=== PATIENT | female | born 1995 | race American Indian/Alaskan Native ===

== ENCOUNTER 2016-10-28 10:10 | Outpatient (CLI) | payer OTHER ==
[2016-10-28 11:02] LABS: Bilirubin,Urine NEG (Negative); Blood,Urine NEG (Negative); Ketones,Urine TR mg/dL (Negative); Leukocyte Esterase,Urine NEG (Negative); Mucus,Urine FEW /HPF; Nitrite,Urine NEG (Negative); Protein,Urine <15 mg/dL mg/dL (Negative); Urobilinogen,Urine < 2.0 mg/dL (<2.0)
[2016-10-28 11:17] VITALS: BP 114/63
[2016-10-28] MEDS ORDERED: LACTATED RINGERS 500 ML IV ONE (12:26)
== END 2016-10-28 13:19 | disposition home or self-care (01) ==
LOC: TRG 10:10
PROVIDERS: ATTEND Obstetrics & Gynecology
DX: Z34.90 Encounter for supervision of normal pregnancy, unspecified, unspecified trimester (principal); Z3A.00 Weeks of gestation of pregnancy not specified
CPT/HCPCS: 59025; 81001; 96360; 96361; J7120

== ENCOUNTER 2019-05-29 14:10 | Inpatient (IN) | payer MEDICAID ==
[2019-05-29] MEDS ORDERED: LACTATED RINGERS 500 ML IV ONE (14:25)
[2019-05-29] MEDS: BRETHINE SUB-Q SCH ×2 (14:35→15:00)
[2019-05-29] MEDS ORDERED: BRETHINE ONE (15:00)
[2019-05-29] MEDS: CELESTONE SOLUSPAN IM SCH (16:16)
[2019-05-29 16:39] LABS: Amorphous Crystals,Urine Few; Bilirubin,Urine NEG (Negative); Blood,Urine NEG (Negative); Color,Urine Yellow (Yellow); Mucus,Urine FEW /HPF; Protein,Urine <15 mg/dL mg/dL (Negative); Urobilinogen,Urine < 2.0 mg/dL (<2.0)
[2019-05-29] MEDS ORDERED: MAGNESIUM SULFATE 4GM/100ML 4 GM/100 ML BAG IV ONE (17:00)
[2019-05-29] MEDS ORDERED: LACTATED RINGERS 1,000 ML ONE (17:28)
[2019-05-29] MEDS ORDERED: COLACE PO PRN (17:39)
[2019-05-29] MEDS ORDERED: TYLENOL PO PRN (17:39)
[2019-05-29 17:43] LABS: Hematocrit 38.3 % (30.3-42.9); Hemoglobin 12.7 gm/dl (10.1-14.3); Mean Corpuscular HGB Conc 33 % (30-34); Mean Corpuscular Volume 82 fl (79-97); Platelet Count 190 K/mm3 (140-440); Red Blood Count 4.68 M/mm3 (3.65-5.03); Red Cell Distribution Width 17.5 % (13.2-15.2)
[2019-05-29] MEDS ORDERED: LACTATED RINGERS 1,000 ML IV SCH (18:00)
[2019-05-29] MEDS: MAGNESIUM SULFATE 40GM/1000ML 40 GM/1,000 ML BAG IV SCH (18:15)
--- NOTE | 2019-05-29 18:39 | Ultrasound Report ---
[facility] COMPLETE OBSTETRIC ULTRASOUND HISTORY: ptl COMPARISON: None. TECHNIQUE: Routine complete OB ultrasound performed. FINDINGS: Ovaries And Uterus: No significant abnormality. Gestation: Cosme Monochorionic monoamniotic intrauterine fetus. Placenta: Posterior location and free of the internal cervical os. Presentation: Cephalic Amniotic Fluid Index: 5.1 cm heart rate 143 BIOMETRY: Biparietal diameter: 6.02 cm corresponding to24 weeks 4 days Head circumference: 28.7 cmcorresponding to31 weeks 4 days Abdominal circumference: 25.7 cmcorresponding to29 weeks 6 days Femur length: 6.7 cmcorresponding to34 weeks 3 days Estimated weight: 1687 grams, which is at the 10th percentile. Estimated gestational age based on clinical history/previous ultrasound: 32 weeks 2 days with SHERI 08/2019 Estimated gestational age based on today's measurements: 30 weeks 1 day SHERI 08/06/2019 IMPRESSION 1. Single intrauterine 2. Decreased amniotic fluid 3. Small BPD 4 heart motion noted Comments because of the discrepancy in the BPD size as compared to the remaining measurement paramete rs recommend maternal medicine consultation Signer Name: Dhiraj Raman MD Signed: 05/29/2019 6:35 PM Workstation Name: [email or web address]
[2019-05-29] MEDS ORDERED: ZOFRAN IV PRN (19:16)
[2019-05-29] MEDS ORDERED: SUDAFED PO PRN (19:16)
[2019-05-29] MEDS ORDERED: MILK OF MAGNESIA PO PRN (19:16)
[2019-05-29] MEDS ORDERED: DEEP SEA NS PRN (19:16)
[2019-05-29] MEDS ORDERED: SODIUM CHLORIDE FLUSH SYRINGE 10 ML IV PRN (19:16)
[2019-05-29] MEDS ORDERED: BENADRYL PO PRN (19:16)
--- NOTE | 2019-05-29 19:31 | Consultation ---
Consult Note - Parent Education I met with parent(s) and discussed the following:: Need for NICU admission, Poss ible need for intubation and surfactant or other resp support, Temperature regulation, Head ultrasounds to evaluate IVH, Eye exams for ROP screening, Possible need for IV fluids/TPN and IV antibiotics, Possible need for umbilical lines, Importance of providing breast milk & encouraged pumping aft delivery, Donor breast milk if baby meets criteria after , Slow feeding advancement and monitoring of tolerance. NG/OG feeds, Need to monitor for jaundice, Data for survival & survival without significant co-morbidities Parent(s) demonstrated understanding of all the information:: Yes Assessment and Plan - Assessment Gestation:: 32 (32 2/7 wker) Estimated Weight: 1687 gms Baby's gender: Female Baby's name: Kiersten Pham Additional Comment: 23 YO mother with previous CS. 32 2/7 weeker. Recei farhat beta x1 and terbutaline. Mother is interested in and supplementing with formula as needed. - Plan Plan: Agree with Mag & steroids Will attend delivery Please call NICU with questions
--- NOTE | 2019-05-29 21:13 | History and Physical Report ---
History of Present Illness Date of examination: 05/30/19 Date of admission: 05/29/19 16:48 Chief complaint: contractions History of present illness: Menstrual History Regularity: regular Menses every: 28 days Duration: 4 LMP: 10/16/2018 LMP reliability: definite LMP character: chief concierge test type: urine test Date: 11/24/2018 BC at conception: none Planned ? no EDC Calculations LMP: 07/23/2019 EDC Confirmation: 07/23/2019 Gestational Age: 5 4/7 weeks Past History : 4 Term Births: 2 Living Children: 2 Para: 2 Elect. Ab: 1 # 1 Delivery date: 2012 Weeks Gestation: 40.6 Delivery type: Anesthesia type: epidural Delivery location: [facility] Infant Sex: Female weight: 7-7 Comments: distress; # 2 Delivery date: 2017 Weeks Gestation: 37 Delivery type: Anesthesia type: epidural Delivery location: [facility] Sex: Male weight: 5-8 Past Medical History: Negative Past Medical History Past Surgical History: Past Medical History Surgery (Non-rivet hole puncher): Abnormal PAP: negative DAT Exposure: negative Infertility: negative Uterine Anomaly: negative Uterine Surgery (not C/S): negative Other Gynecologic Problems: negative Medical History Comments: Negative Family Hx: Negative Social Hx: no +tobacco ; no drugs ; no etoh [facility] Infection History Hx of STD: none Partner hx. of genital herpes: no Rash, Viral, or Febrile illness since last LMP? no Varicella/Chicken Pox Status: Immunized Genetic History Congenital Heart Defect: Mom: no Dad: no Mathew Disease: Mom: no Dad: no Thalassemia Mom: no Dad: no Neural Tube Defect Mom: no Dad: no Down's Syndrome Mom: no Dad: no Eros-Sachs Mom: no Dad: no Sickle Cell Disease/Trait Mom: no Dad: no Hemophilia Mom: no Dad: no Muscular Dystrophy Mom: no Dad: no Cystic Fibrosis Mom: no Dad: no Wilbraham Chorea Mom: no Dad: no Mental Retardation Mom: no Dad: no Fragile X Mom: no Dad: no Other Genetic/Chromosomal Disorder Mom: no Dad: no Child w/other defect Mom: no Dad: no Enviromental Exposures Xray Exposure: no Medication, drug, or alcohol use since LMP: no Chemical/Other Exposure: no Exposure to Cat Liter: no Hx of Parvovirus (Fifth Disease): no Occupational Exposure to Children: none Active Medications (reviewed today): PNV GUMMIES () Current Allergies (reviewed today): No known allergies Past History Past Medical History: other (see HPI) Past Surgical History: other (see HPI) CLAIMS MANAGER History: other (see HPI) Family/Genetic History: other (see HPI) - Obstetrical History Expected Date of Delivery: 07/23/19 Actual Gestation: 32 Week(s) 2 Day(s) : 4 Para: 2 Hx # Term Pregnancies: 2 Number of Pregnancies: 0 Spontaneous Abortions: 0 Induced : 1 Number of Living Children: 2 Medications and Allergies Allergies Allergy/AdvReac Type Severity Reaction Status Date / Time No Known Allergies Allergy Verified 05/29/19 14:43 Home Medications Medication Instructions Recorded Confirmed Last Taken Type Cyclobenzaprine HCl [Flexeril 5 MG 5 mg PO TID PRN #21 tab 04/09/16 Unknown Rx TAB] Ibuprofen [Motrin 800 MG tab] 800 mg PO Q8HR PRN #30 tablet 04/09/16 Unknown Rx Ferrous Sulfate [Feosol 325 MG tab] 325 mg PO BID #60 tablet 01/05/17 Unknown Rx HYDROcodone/APAP 5-325 [[place] 1 each PO Q6HR PRN #30 tablet 01/05/17 Unknown Rx 5/325] Ibuprofen [Motrin] 800 mg PO Q8HR PRN #30 tablet 01/05/17 Unknown Rx Vit Calc,Iron,Folic 1 each PO DAILY #30 tablet 01/05/17 Unknown Rx [ Vitamins] Active Meds: Active Medications Acetaminophen (Tylenol) 650 mg PO Q4H PRN PRN Reason: Pain MILD(1-3)/Fever >100.5/DUNCAN Betamethasone Acet/Betameth SodPhos (Celestone Soluspan) 12 mg IM Q24H DEYSI Stop: 05/30/19 17:01 Last Admin: 05/29/19 16:16 Dose: 12 mg Documented by: Diphenhydramine HCl (Benadryl) 25 mg PO Q6H PRN PRN Reason: Itching Docusate Sodium (Colace) 100 mg PO Q12H PRN PRN Reason: Constipation Magnesium Sulfate (Magnesium Sulfate 40gm/1000ml) 40 gm in 1,000 mls @ 50 mls/hr IV DIRECT DEYSI Last Admin: 05/29/19 18:15 Dose: 2 gm/hr, 50 mls/hr Documented by: Lactated Ringer's (Lactated Ringers) 1,000 mls @ 125 mls/hr IV DIRECT DEYSI Magnesium Hydroxide (Milk Of Magnesia) 30 ml PO QHS PRN PRN Reason: Laxative Effect Multivitamins/Iron/Calcium ( Vitamin) 1 each PO QDAY DEYSI Ondansetron HCl (Zofran) 4 mg IV Q6H PRN PRN Reason: Nausea And Vomiting Pseudoephedrine HCl (Sudafed) 30 mg PO Q6H PRN PRN Reason: Nasal Congestion Sodium Chloride (Sodium Chloride Flush Syringe 10 Ml) 10 ml IV PRN PRN PRN Reason: LINE FLUSH Sodium Chloride (Deep Sea) 2 spray NS Q4H PRN PRN Reason: Congestion Terbutaline Sulfate (Brethine) 0.25 mg SUB-Q Q20MIN [facility] Stop: 05/31/19 15:01 Last Admin: 05/29/19 15:00 Dose: 0.25 mg Documented by: Review of Systems All systems: negative Genitourinary: contractions, no vaginal bleeding, no leakage of fluid - Vital Signs Vital signs: Vital Signs Pulse Pulse Ox 96 H 100 05/29/19 14:31 05/29/19 14:31 Temp Pulse Resp BP Pulse Ox 98.6 F 96 H 103/59 100 05/29/19 18:46 05/29/19 20:46 05/29/19 20:46 05/29/19 15:01 - Physical Exam Cardiovascular: Regular rate, Normal S1, Normal S2 Lungs: Positive: Clear to auscultation, Normal air movement Abdomen: Positive: normal appearance, soft, normal bowel sounds. Negative: distention, tenderness Genitourinary (Female): Positive: normal external genitalia, normal perenium Vulva: both: normal Vagina: Positive: normal moisture. Negative: discharge Cervix: Negative: lesion, discharge Uterus: Positive: normal size, normal contour Adnexa: both: normal Anus/Rectum: Positive: normal perianal skin, heme negative. Negative: rectal mass, hemorrhoids Extremities: Positive: normal Deep Tendon Reflex Grade: Normal +2 - Obstetrical FHR: auscultation normal, category 1 Uterine Contraction Monitor Mode: Palpation Cervical Dilatation: 1.5 Cervical Effacement Percentage: 50 station: -3 Uterine Contraction Pattern: Irregular Uterine Tone Measurement Phase: Contraction (irritability) Uterine Contraction Intensity: Mild Results Result Diagrams: 05/29/19 16:08 Abnormal lab results 05/29/19 Range/Units 16:08 MCH 27 L (28-32) pg RDW 17.5 H (13.2-15.2) % All other labs normal. Ultrasound: report reviewed Assessment and Plan 23 y.o. IUP at 32w2d presents to triage wt c/o contractions every minute since this afternoon. SVE per trimming cutter machine is 1.5/50/-3, IBOW. Ctx q1-3 min, palpating mild per RN. Terb series given (2/3, patient refused 3rd dose stating "Its not helping and I just want to have my baby today") and LR bolus. SVE after bolus is unchanged, patient still c/o pain/ctx q1 minute. Per Dr. Harvey, pt admitted for magnesium infusion, BMZ, US YUMIKO and EFW. YUMIKO is 5.1, BPD measuring 24 weeks. AMFM consult in EMR. Spec exam shows no pooling, no fluid from cervix. Nitrazine is negative. Fern is negative, no s/s SROM. SVE remains unchanged. Patient reports abdominal pain level 9/10. Abdomen is soft all over on palpation. Mild contraction palpated occasionally. Unable to determine on TOCO irritability vs ctx vs maternal movement/abdominal tightening. GBS collected. US for dopplers and IV fentanyl ordered per Dr. Harvey. Dopplers WNL. Pt is comfortable s/p fentanyl administration. Will continue to monitor.
[2019-05-29] MEDS ORDERED: SUBLIMAZE IV ONE (22:40)
[2019-05-29 22:41] LABS: Amphetamine Screen,Urine PRESUMPTIVE NEGATIVE; Benzodiazepines Screen,Urine PRESUMPTIVE NEGATIVE; Cannabinoid Screen,Urine PRESUMPTIVE NEGATIVE; Cocaine Screen,Urine PRESUMPTIVE NEGATIVE; Methadone Screen,Urine PRESUMPTIVE NEGATIVE; Opiate Screen,Urine PRESUMPTIVE NEGATIVE
--- NOTE | 2019-05-30 00:11 | Ultrasound Report ---
US OB velocimetry umbilcal art INDICATION / CLINICAL INFORMATION: IUGR. COMPARISON: None available. FINDINGS: Average SD ratio 2.41. Normal waveform. Average resistive index 0.58. Normal waveform. Ultrasound estimated gestational age 32 weeks 1 day. heart rate 138. IMPRESSION: 1. Viable intrauterine . Measurements as above. Signer Name: Faisal Toledo MD Signed: 05/30/2019 12:07 AM Workstation Name: [id number]
[2019-05-30] MEDS ORDERED: STADOL IV ONE ×3 (01:49→16:00)
--- NOTE | 2019-05-30 02:29 | Event Note ---
Date: 05/30/19 IUP@32 2/7wga w/ painful persistent uterine contractions, no leaking, no bleeding. She refused the last Terbutaline dose, she was started on MgSO4 and BMZ therapy. No cervical change since admission. FHT's cat 1, contraction now absent. US: head BPD 24weeks (fetus is cephalic), YUMIKO 5cm. NICU and AMFM consultations ordered, IVF hydration. Complete BMZ therapy. Continuous monitoring. Plan of care explained, questions answered. She voiced understanding.
[2019-05-30] MEDS: BRETHINE SUB-Q SCH (02:38)
[2019-05-30] MEDS: STADOL IV PRN ×2 (07:51→12:29)
[2019-05-30] MEDS ORDERED: PRENATAL VITAMIN PO SCH (10:00)
[2019-05-30] MEDS: MAGNESIUM SULFATE 40GM/1000ML 40 GM/1,000 ML BAG IV SCH (11:46)
--- NOTE | 2019-05-30 13:56 | Progress Note ---
Assessment and Plan Pt seen by Dr Orellana He recommends a recalculation of BPD and YUMIKO - he feels the US was misinterpreted Also recommends MGSO4 be decreased from 3gm/hr back to 2gm/hr based on last mag level of >6. Pt is asymptomatic. He would also like the fFn be done once the pt has not been examined X 24 hours. made aware - Patient Problems (1) 32 weeks gestation of Onset Date: ~05/30/19 Current Visit: Yes Status: Acute Plan to address problem: continuous monitoring (2) contractions Onset Date: ~05/30/19 Current Visit: Yes Status: Acute Plan to address problem: Last mag level >6 MGSO4 decreased to 2gm/hr Subjective - Subjective Date of service: 05/30/19 (pt feeling some better this afternoon) Principal diagnosis: IUP@32w Prev c/s X 2 with painful ctx Patient reports: movement normal Objective - Vital Signs Vital Signs: Vital Signs - 12hr 05/30/19 05/30/19 05/30/19 01:53 01:58 02:04 Temperature Pulse Rate 105 H 94 H 100 H Respiratory Rate Blood Pressure O2 Sat by Pulse 99 99 100 Oximetry 05/30/19 05/30/19 05/30/19 02:06 02:08 02:09 Temperature Pulse Rate 96 H 91 H Respiratory 20 Rate Blood Pressure O2 Sat by Pulse 85 99 Oximetry 05/30/19 05/30/19 05/30/19 02:14 02:15 02:19 Temperature Pulse Rate 105 H 101 H 95 H Respiratory Rate Blood Pressure 120/73 O2 Sat by Pulse 93 94 Oximetry 05/30/19 05/30/19 05/30/19 02:24 02:27 02:29 Temperature Pulse Rate 103 H 97 H 99 H Respiratory Rate Blood Pressure O2 Sat by Pulse 93 94 94 Oximetry 05/30/19 05/30/19 05/30/19 02:32 02:34 02:39 Temperature Pulse Rate 95 H 93 H 89 Respiratory Rate Blood Pressure O2 Sat by Pulse 94 96 97 Oximetry 05/30/19 05/30/19 05/30/19 02:43 02:45 02:48 Temperature Pulse Rate 99 H 97 H 114 H Respiratory Rate Blood Pressure 103/63 O2 Sat by Pulse 96 95 Oximetry 05/30/19 05/30/19 05/30/19 02:54 02:58 03:03 Temperature Pulse Rate 105 H 108 H 103 H Respiratory Rate Blood Pressure O2 Sat by Pulse 96 96 97 Oximetry 05/30/19 05/30/19 05/30/19 03:09 03:14 03:16 Temperature Pulse Rate 109 H 105 H 100 H Respiratory Rate Blood Pressure 97/57 O2 Sat by Pulse 96 97 Oximetry 05/30/19 05/30/19 05/30/19 03:19 03:24 03:28 Temperature Pulse Rate 104 H 104 H 100 H Respiratory Rate Blood Pressure O2 Sat by Pulse 96 97 98 Oximetry 05/30/19 05/30/19 05/30/19 03:34 03:38 03:43 Temperature Pulse Rate 100 H 100 H 101 H Respiratory Rate Blood Pressure O2 Sat by Pulse 98 98 97 Oximetry 05/30/19 05/30/19 05/30/19 03:45 03:49 03:53 Temperature Pulse Rate 97 H 99 H 99 H Respiratory Rate Blood Pressure 105/57 O2 Sat by Pulse 96 97 Oximetry 05/30/19 05/30/19 05/30/19 03:59 04:00 04:03 Temperature Pulse Rate 113 H 50 L 95 H Respiratory Rate Blood Pressure O2 Sat by Pulse 98 92 98 Oximetry 05/30/19 05/30/19 05/30/19 04:09 04:14 04:19 Temperature Pulse Rate 97 H 105 H 96 H Respiratory Rate Blood Pressure O2 Sat by Pulse 98 97 98 Oximetry 05/30/19 05/30/19 05/30/19 04:24 04:28 04:34 Temperature Pulse Rate 101 H 104 H 102 H Respiratory Rate Blood Pressure O2 Sat by Pulse 97 97 96 Oximetry 05/30/19 05/30/19 05/30/19 04:38 04:43 04:45 Temperature Pulse Rate 101 H 99 H 100 H Respiratory Rate Blood Pressure 98/55 O2 Sat by Pulse 98 98 Oximetry 05/30/19 05/30/19 05/30/19 04:49 04:54 04:58 Temperature Pulse Rate 99 H 99 H 99 H Respiratory Rate Blood Pressure O2 Sat by Pulse 98 97 98 Oximetry 05/30/19 05/30/19 05/30/19 05:03 05:09 05:14 Temperature Pulse Rate 94 H 100 H 104 H Respiratory Rate Blood Pressure O2 Sat by Pulse 98 98 99 Oximetry 05/30/19 05/30/19 05/30/19 05:16 05:19 05:24 Temperature Pulse Rate 95 H 94 H 101 H Respiratory Rate Blood Pressure 108/62 O2 Sat by Pulse 99 97 Oximetry 05/30/19 05/30/19 05/30/19 05:29 05:34 05:39 Temperature Pulse Rate 98 H 95 H 97 H Respiratory Rate Blood Pressure O2 Sat by Pulse 96 98 96 Oximetry 05/30/19 05/30/19 05/30/19 05:43 05:45 05:49 Temperature Pulse Rate 101 H 100 H 100 H Respiratory Rate Blood Pressure 97/54 O2 Sat by Pulse 97 97 Oximetry 05/30/19 05/30/19 05/30/19 05:53 05:59 06:04 Temperature Pulse Rate 101 H 104 H 101 H Respiratory Rate Blood Pressure O2 Sat by Pulse 96 97 97 Oximetry 05/30/19 05/30/19 05/30/19 06:09 06:14 06:16 Temperature Pulse Rate 99 H 100 H 96 H Respiratory Rate Blood Pressure 98/58 O2 Sat by Pulse 96 97 Oximetry 05/30/19 05/30/19 05/30/19 06:18 06:23 06:29 Temperature Pulse Rate 101 H 100 H 94 H Respiratory Rate Blood Pressure O2 Sat by Pulse 97 97 97 Oximetry 05/30/19 05/30/19 05/30/19 06:34 06:38 06:43 Temperature Pulse Rate 98 H 100 H 102 H Respiratory Rate Blood Pressure O2 Sat by Pulse 100 100 100 Oximetry 05/30/19 05/30/19 05/30/19 06:48 06:53 06:59 Temperature Pulse Rate 109 H 118 H 114 H Respiratory Rate Blood Pressure O2 Sat by Pulse 99 100 100 Oximetry 05/30/19 05/30/19 05/30/19 07:04 07:09 07:14 Temperature Pulse Rate 117 H 103 H 102 H Respiratory Rate Blood Pressure O2 Sat by Pulse 99 100 100 Oximetry 05/30/19 05/30/19 05/30/19 07:15 07:18 07:23 Temperature Pulse Rate 120 H 104 H 107 H Respiratory Rate Blood Pressure 187/122 O2 Sat by Pulse 100 100 Oximetry 05/30/19 05/30/19 05/30/19 07:28 07:33 07:39 Temperature Pulse Rate 102 H 106 H 104 H Respiratory Rate Blood Pressure O2 Sat by Pulse 99 97 100 Oximetry 05/30/19 05/30/19 05/30/19 07:44 07:49 07:53 Temperature Pulse Rate 122 H 114 H 101 H Respiratory Rate Blood Pressure 125/74 O2 Sat by Pulse 100 83 L 100 Oximetry 05/30/19 05/30/19 05/30/19 07:58 08:04 08:09 Temperature Pulse Rate 98 H 108 H 92 H Respiratory Rate Blood Pressure O2 Sat by Pulse 99 98 98 Oximetry 05/30/19 05/30/19 05/30/19 08:14 08:15 08:18 Temperature Pulse Rate 99 H 90 90 Respiratory Rate Blood Pressure 120/71 O2 Sat by Pulse 97 94 Oximetry 05/30/19 05/30/19 05/30/19 08:19 08:24 08:29 Temperature Pulse Rate 98 H 90 92 H Respiratory Rate Blood Pressure O2 Sat by Pulse 99 99 95 Oximetry 05/30/19 05/30/19 05/30/19 08:34 08:38 08:44 Temperature Pulse Rate 90 86 91 H Respiratory Rate Blood Pressure O2 Sat by Pulse 96 96 97 Oximetry 05/30/19 05/30/19 05/30/19 08:49 08:54 08:59 Temperature Pulse Rate 94 H 78 86 Respiratory Rate Blood Pressure O2 Sat by Pulse 99 98 98 Oximetry 05/30/19 05/30/19 05/30/19 09:04 09:09 09:14 Temperature Pulse Rate 86 84 85 Respiratory Rate Blood Pressure O2 Sat by Pulse 98 97 97 Oximetry 05/30/19 05/30/19 05/30/19 09:19 09:24 09:29 Temperature Pulse Rate 82 87 81 Respiratory Rate Blood Pressure 99/59 O2 Sat by Pulse 97 99 98 Oximetry 05/30/19 05/30/19 05/30/19 09:32 09:33 09:39 Temperature 97.4 F L Pulse Rate 85 82 Respiratory Rate Blood Pressure O2 Sat by Pulse 98 99 Oximetry 05/30/19 05/30/19 05/30/19 09:44 09:49 09:53 Temperature Pulse Rate 87 89 80 Respiratory Rate Blood Pressure O2 Sat by Pulse 97 98 99 Oximetry 05/30/19 05/30/19 05/30/19 09:58 10:03 10:06 Temperature Pulse Rate 81 90 95 H Respiratory Rate Blood Pressure O2 Sat by Pulse 99 100 93 Oximetry 05/30/19 05/30/19 05/30/19 10:09 10:14 10:19 Temperature Pulse Rate 91 H 98 H 83 Respiratory Rate Blood Pressure O2 Sat by Pulse 100 100 99 Oximetry 05/30/19 05/30/19 05/30/19 10:24 10:29 10:33 Temperature Pulse Rate 79 82 82 Respiratory Rate Blood Pressure 103/60 O2 Sat by Pulse 98 98 99 Oximetry 05/30/19 05/30/19 05/30/19 10:39 10:44 10:49 Temperature Pulse Rate 85 83 100 H Respiratory Rate Blood Pressure O2 Sat by Pulse 97 99 99 Oximetry 05/30/19 05/30/19 05/30/19 10:53 10:58 11:03 Temperature Pulse Rate 84 86 83 Respiratory Rate Blood Pressure O2 Sat by Pulse 97 98 99 Oximetry 05/30/19 05/30/19 05/30/19 11:08 11:13 11:18 Temperature Pulse Rate 84 83 88 Respiratory Rate Blood Pressure O2 Sat by Pulse 98 97 98 Oximetry 05/30/19 05/30/19 05/30/19 11:23 11:28 11:30 Temperature Pulse Rate 86 101 H 90 Respiratory Rate Blood Pressure 95/51 O2 Sat by Pulse 97 96 Oximetry 05/30/19 05/30/19 05/30/19 11:33 11:38 11:43 Temperature Pulse Rate 99 H 102 H 89 Respiratory Rate Blood Pressure O2 Sat by Pulse 99 99 100 Oximetry 05/30/19 05/30/19 05/30/19 11:48 11:53 11:58 Temperature Pulse Rate 114 H 99 H 107 H Respiratory Rate Blood Pressure O2 Sat by Pulse 100 100 99 Oximetry 05/30/19 05/30/19 05/30/19 12:03 12:08 12:13 Temperature Pulse Rate 98 H 97 H 104 H Respiratory Rate Blood Pressure O2 Sat by Pulse 98 99 100 Oximetry 05/30/19 05/30/19 05/30/19 12:30 12:47 13:01 Temperature Pulse Rate 105 H 96 H 96 H Respiratory Rate Blood Pressure 121/79 113/67 111/64 O2 Sat by Pulse Oximetry 05/30/19 05/30/19 05/30/19 13:18 13:28 13:31 Temperature Pulse Rate 94 H 94 H 96 H Respiratory Rate Blood Pressure 115/71 106/64 O2 Sat by Pulse 99 Oximetry 05/30/19 05/30/19 05/30/19 13:33 13:38 13:43 Temperature Pulse Rate 90 88 96 H Respiratory Rate Blood Pressure O2 Sat by Pulse 98 97 95 Oximetry 05/30/19 05/30/19 13:46 13:48 Temperature Pulse Rate 90 88 Respiratory Rate Blood Pressure 108/63 O2 Sat by Pulse 98 Oximetry - Exam Breasts: deferred Cardiovascular: Regular rate Lungs: Normal air movement Abdomen: Present: normal appearance, soft. Absent: distention, tenderness Uterus: Present: normal FHR: auscultation normal, category 1 Uterine Contraction Monitor Mode: External Cervical Dilatation: 1 Cervical Effacement Percentage: 0 station: -4 Uterine Contraction Pattern: Regular Uterine Tone Measurement Phase: Resting Uterine Contraction Intensity: Moderate Extremities: normal Deep Tendon Reflex Grade: Normal +2 - Labs Labs: Abnormal Labs 05/29/19 05/29/19 05/30/19 16:08 22:36 04:17 MCH 27 L RDW 17.5 H Magnesium 4.60 H 5.40 H 05/30/19 10:00 MCH RDW Magnesium 6.70 H Laboratory Results - last 24 hr 05/29/19 05/29/19 05/29/19 15:06 16:08 21:25 WBC 5.9 RBC 4.68 Hgb 12.7 Hct 38.3 MCV 82 MCH 27 L MCHC 33 RDW 17.5 H Plt Count 190 Magnesium Urine Color Yellow Urine Turbidity Clear Urine pH 7.0 Ur Specific Byron 1.012 Urine Protein <15 mg/dl Urine Glucose (UA) Neg Urine Ketones Neg Urine Blood Neg Urine Nitrite Neg Urine Bilirubin Neg Urine Urobilinogen < 2.0 Ur Leukocyte Esterase Neg Urine WBC (Auto) 2.0 Urine RBC (Auto) 1.0 U Epithel Cells (Auto) 2.0 Amorphous Crystals Few Urine Mucus Few Urine Opiates Screen Presumptive negative Urine Methadone Screen Presumptive negative Ur Barbiturates Screen Presumptive negative Ur Phencyclidine Scrn Presumptive negative Ur Amphetamines Screen Presumptive negative U Benzodiazepines Scrn Presumptive negative Urine Cocaine Screen Presumptive negative U Marijuana (THC) Screen Presumptive negative Drugs of Abuse Note Disclamer Blood Type Antibody Screen 05/29/19 05/29/19 05/30/19 22:36 Unknown 04:17 WBC RBC Hgb Hct MCV MCH MCHC RDW Plt Count Magnesium 4.60 H 5.40 H Urine Color Urine Turbidity Urine pH Ur Specific Byron Urine Protein Urine Glucose (UA) Urine Ketones Urine Blood Urine Nitrite Urine Bilirubin Urine Urobilinogen Ur Leukocyte Esterase Urine WBC (Auto) Urine RBC (Auto) U Epithel Cells (Auto) Amorphous Crystals Urine Mucus Urine Opiates Screen Urine Methadone Screen Ur Barbiturates Screen Ur Phencyclidine Scrn Ur Amphetamines Screen U Benzodiazepines Scrn Urine Cocaine Screen U Marijuana (THC) Screen Drugs of Abuse Note Blood Type O POSITIVE Antibody Screen Negative 05/30/19 10:00 WBC RBC Hgb Hct MCV MCH MCHC RDW Plt Count Magnesium 6.70 H Urine Color Urine Turbidity Urine pH Ur Specific Byron Urine Protein Urine Glucose (UA) Urine Ketones Urine Blood Urine Nitrite Urine Bilirubin Urine Urobilinogen Ur Leukocyte Esterase Urine WBC (Auto) Urine RBC (Auto) U Epithel Cells (Auto) Amorphous Crystals Urine Mucus Urine Opiates Screen Urine Methadone Screen Ur Barbiturates Screen Ur Phencyclidine Scrn Ur Amphetamines Screen U Benzodiazepines Scrn Urine Cocaine Screen U Marijuana (THC) Screen Drugs of Abuse Note Blood Type Antibody Screen
[2019-05-30] MEDS ORDERED: PROCARDIA*For Tocolysis only PO SCH (15:20)
[2019-05-30] MEDS: CELESTONE SOLUSPAN IM SCH (16:06)
[2019-05-30] MEDS ORDERED: REGLAN IV ONE (17:26)
[2019-05-30] MEDS ORDERED: PEPCID IV ONE (17:26)
[2019-05-30] MEDS ORDERED: BICITRA PO ONE (17:26)
--- NOTE | 2019-05-30 17:34 | Event Note ---
Date: 05/30/19 (pain reoccurs despite interventions) Pt crying wanting to know what is next Consulted with Pt has continued to have moderate to severe pain all day despite interventions. C/S called orders in EMR Pt spoken to via phone desires to have section Reviewed risks: damage to other organs, bleeding, hysterectomy. Pt also understandings baby will be in the NICU for an extended time. Pt desires tubal Consent faxed to L&D
--- NOTE | 2019-05-30 17:45 | Anesthesia Consultation ---
Anesthesia Consult and Med Hx Date of service: 05/30/19 - Airway Anesthetic Teeth Evaluation: Poor ROM Head & Neck: Adequate Mental/Hyoid Distance: Adequate Mallampati Class: Class II Intubation Access Assessment: Probably Good - Pulmonary Exam CTA: Yes - Cardiac Exam Cardiac Exam: RRR - Pre-Operative Health Status ASA Pre-Surgery Classification: ASA2, Emergency Proposed Anesthetic Plan: Spinal - Pulmonary Hx Smoking: No Hx Asthma: No Hx Respiratory Symptoms: No SOB: No COPD: No Home Oxygen Therapy: No Hx Pneumonia: No - Cardiovascular System Hx Hypertension: No Hx Coronary Artery Disease: No Hx Heart Attack/AMI: No Hx Angina: No Hx Percutaneous Transluminal Coronary Angioplasty (PTCA): No Hx Cardia Arrhythmia: No Hx Pacemaker: No Hx Internal Defibrillator: No Hx Valvular Heart Disease: No Hx Heart Murmur: No Hx Peripheral Vascular Disease: No - Central Nervous System Hx Neuromuscular Disorder: No Hx Seizures: No CVA: No Hx Back Pain: No Hx Psychiatric Problems: No - Gastrointestinal Hx Ulcer: No Hx Gastroesophageal Reflux Disease: Yes - Endocrine Hx Renal Disease: Yes (hx of hydronehrosis) Hx End Stage Renal Disease: No Hx Cirrhosis: No Hx Liver Disease: No Hx Insulin Dependent Diabetes: No Hx Non-Insulin Dependent Diabetes: No Hx Thyroid Disease: No Hx Hypothyroidism: No Hx Hyperthyroidism: No - Hematic Hx Anemia: No Hx Sickle Cell Disease: No - Other Systems Hx Alcohol Use: No Hx Substance Use: No Hx Cancer: No
--- NOTE | 2019-05-30 17:45 | Anesthesia Day of Surgery ---
Anesthesia Day of Surgery - Day of Surgery Patient Examined: Yes Patient H&P Reviewed: Yes Patient is NPO: Yes Beta Blockers: No Cardiac Clearance: No Pulmonary Clearance: No Ajay's Test: N/A
[2019-05-30] MEDS ORDERED: BENADRYL IV PRN (17:46)
[2019-05-30] MEDS ORDERED: ZOFRAN IV PRN ×2 (17:46→22:17)
[2019-05-30] MEDS ORDERED: DILAUDID IV PRN (17:46)
[2019-05-30] MEDS ORDERED: DEXMEDETOMIDINE IV ONE (17:58)
--- NOTE | 2019-05-30 17:59 | Event Note ---
Date: 05/30/19 Patient persistent increasing pain requiring frequent doses of narcotic will move to delivery to deliver Patient informed the risks of the surgery include bleeding possibly bleeding heavy enough to require blood transfusion, infection possible damage to bowel bladder ureter. Discussed with the patient that she has increased risks of adjacent organ damage due to her 2 previous sections. All questions answered. Patient agrees to proceed. Patient desires permanent sterilization. She declined temporary contraceptives. She understands that this surgery would make her permanently sterile. She also understands the approximate 1% failure rate. The patient understands all the above and desires to proceed.
[2019-05-30] MEDS ORDERED: LACTATED RINGERS 1,000 ML IV SCH (18:00)
[2019-05-30] MEDS ORDERED: ANCEF/STERILE WATER 2 GM/20 ML 2 GM/20 ML SYRINGE IV NR (18:00)
[2019-05-30] MEDS ORDERED: SODIUM CHLORIDE FLUSH SYRINGE 10 ML IV NR (18:00)
[2019-05-30] MEDS ORDERED: PITOCin/NS 20 UNIT/1000ML DRIP 20 UNITS/1,000 ML BAG IV SCH ×3 (18:00→22:17)
[2019-05-30] MEDS ORDERED: WATER FOR IRRIG STERILE IR ONE (18:26)
[2019-05-30] MEDS ORDERED: NACL 0.9% IR ONE (18:26)
[2019-05-30] MEDS ORDERED: ZOFRAN ONE (19:41)
--- NOTE | 2019-05-30 19:49 | Operative Report ---
Operative Report Operative Report: Date of procedure: 05/30/2019 Pre-operative diagnosis: Intrauterine at 32 weeks 2 days, increasing a bdominal pelvic pain with frequent contractions, status post 2 sections and desires permanent sterilization Post-operative diagnosis: Same plus thick pelvic adhesions Procedure name(s): Repeat low transverse section with bilateral salpingectomy and lysis of adhesions. Surgeon: Manav Kamara MD Remelt Worker: Maya Bach, certified nurse bookkeeping clerks supervisor Anesthesia: Spinal EBL: 700 mL Complications: None Findings: Patient with thick adhesions between the anterior abdominal wall rectus and anterior uterus. Normal right fallopian tube. Left fallopian tube with adhesions to the cornea and anterior uterus. Female infant weight 3 lbs. 6 oz. Apgars not available at time of discharge Specimen(s): Placenta and bilateral fallopian tubes Procedure: The patient was brought to the operating room. A spinal was placed without any complications. She was then placed in left lateral tilt. Prepped and draped in the usual sterile manner. After testing for adequate anesthesia level, a Pfannenstiel incision was made through her previous scar. This incision was taken down to the fascia. The fascia was then nicked in the midline. This incision was extended out laterally with Kelly scissors. The fascia was then sharply and bluntly from the underlying rectus muscles were very thick adhesions. The rectus muscles were bluntly and sharply . The peritoneum was then entered by grasping muscle with Kochler some lifting and cutting of very carefully with Kelly scissors.. This incision was spread vertically with care not to damage the bladder below. Bladder blade was placed. The bladder flap was then formed sharply and bluntly with Metzenbaum scissors. A transverse incision was made in lower uterine segment. This incision was extended laterally with the operators fingers. The amniotic sac was then entered bluntly with the foiling machine operator's fingers. The was delivered from the vertex position. Bulb suction on the mother's abdomen. Cord was double clamped and cut. The infant was then passed to the nursery personnel who were in attendance. The scores will be given by the nursery personnel. The placenta was then bluntly removed. The uterus was then externalized at the lysis of adhesions between the left anterior uterine wall and rectus muscles, and wiped clean the remaining products. The uterine incision was closed in layers. The first incision was closed in a locking manner using 0 Vicryl. This was followed by imbricating stitch also with 0 Vicryl. Attention was then switched to the patient's fallopian tubes. Each fallopian tube was identified by its fimbriated end. A portion of each tube was grabbed with the [place] clamp approximately 2-3 cm from the cornua. The fallopian tube was transected with the Bovie. With grasping the fallopian tube to the Tisha clamps the mesosalpinx was burned right under the tube until the fimbriated end was met and the total distance to remove. . Each stump was found to be hemostatic and cauterized with the Bovie. Attention was then switched back to the uterine closure. This closure was hemostatic. The bladder flap was copiously irrigated and found to be hemostatic. The pelvis was copiously irrigated and found to be hemostatic. The uterus was then placed back to the patient's abdomen. The retractors were removed. The rectus muscles were inspected and found to be hemostatic. The fascia was then closed in a running manner using 0 Vicryl. This incision was hemostatic irrigation Bovie. The skin was reapproximated with 4-0 Vicryl subcuticularly. The patient tolerated procedure well. Her urine was clear. The infant was admitted to the NICU. The patient was accompanied to recovery room in good condition. Instrument count correct 3.
--- NOTE | 2019-05-30 19:50 | Post Anesthesia Evaluation ---
- Post Anesthesia Evaluation Patient Participated: Yes Airway Patent: Yes Stable Respiratory Function: Yes Nausea/Vomiting: No Temp > 96.8F: Yes Pain Manageable: Yes Adequeate Hydration: Yes Anesthesia Complications: No Block Receding Appropriately: Yes Patient on Ventilator: No
[2019-05-30] MEDS: DILAUDID IV PRN ×4 (19:53→21:36)
[2019-05-30] MEDS ORDERED: NARCAN 0.4 MG/1 ML IV PRN (22:17)
[2019-05-30] MEDS ORDERED: SODIUM CHLORIDE FLUSH SYRINGE 10 ML IV PRN (22:17)
[2019-05-30] MEDS ORDERED: MILK OF MAGNESIA PO PRN (22:17)
[2019-05-30] MEDS ORDERED: IBUPROFEN PO PRN (22:17)
[2019-05-30] MEDS ORDERED: D5LR 1,000 ML IV SCH (22:17)
[2019-05-30] MEDS ORDERED: LANSINOH TP PRN (22:17)
[2019-05-30] MEDS ORDERED: TUCKS PAD TP PRN (22:17)
[2019-05-30] MEDS: TORADOL IV SCH (23:25)
[2019-05-31] MEDS: ANCEF/NS 1 GM/50 ML 1 GM/50 ML BAG IV SCH ×2 (01:38→10:34)
[2019-05-31] MEDS: TORADOL IV SCH (05:26)
[2019-05-31 08:29] LABS: Hematocrit 25.4 % (30.3-42.9); Hemoglobin 8.6 gm/dl (10.1-14.3)
--- NOTE | 2019-05-31 09:06 | Progress Note ---
Assessment and Plan Pt resting in bed quietly. Reports pain 6/10 and has not taken any pain medication. Advised pt to maintain pain control and made aware of medication available. VSSAF. Occassional elevated HR 100-105. Denies dizziness, SOB, or chest pain. ABD dressing C/D/I. FF at umbilicus. Light bleeding. + bowel sounds. Denies flatus. Encouraged ambulation, water hydration, and importance of using SI. BF successfully. in NICU and pt reports is doing better. - Patient Problems (1) 32 weeks gestation of Onset Date: ~05/30/19 Current Visit: Yes Status: Acute (2) contractions Onset Date: ~05/30/19 Current Visit: Yes Status: Acute (3) delivery delivered Onset Date: ~05/30/19 Current Visit: Yes Status: Acute Plan to address problem: C/S x 12 hrs. Continue pathway. PP H/H pending to be drawn today. Subjective - Subjective Date of service: 05/31/19 (Day 12hrs s/p C/S) Principal diagnosis: IUP@32w Prev c/s X 2 with painful ctx Patient reports: appetite normal, voiding normally, pain poorly controlled (pt will try pain medication at this time), ambulating normally : in NICU Objective - Vital Signs Latest vital signs: Vital Signs Temp Pulse Resp BP BP Pulse Ox 05/31/19 05:30 98.0 F 81 20 112/76 100 05/31/19 05:26 20 05/30/19 23:25 20 05/30/19 22:20 98.1 F 85 20 107/69 99 05/30/19 21:30 98 F 93 H 21 118/50 96 05/30/19 21:00 95 H 13 108/69 05/30/19 20:45 77 15 101/60 94 05/30/19 20:31 81 17 100/59 100 05/30/19 20:15 59 L 16 90/51 98 05/30/19 20:00 67 13 91/51 98 05/30/19 19:50 67 16 98/55 100 05/30/19 19:45 49 L 18 110/60 98 05/30/19 19:40 97.8 F 76 15 87/51 98 05/30/19 17:28 105 H 99 05/30/19 17:23 105 H 100 05/30/19 17:19 94 H 123/61 05/30/19 17:18 98 H 99 05/30/19 17:13 111 H 99 05/30/19 17:08 86 99 05/30/19 17:03 99 H 99 05/30/19 16:58 100 H 97 05/30/19 16:53 97 H 98 05/30/19 16:48 92 H 99 05/30/19 16:43 104 H 99 05/30/19 16:38 97 H 99 05/30/19 16:33 106 H 98 05/30/19 16:28 99 H 99 05/30/19 16:23 106 H 99 05/30/19 16:18 104 H 99 05/30/19 16:13 105 H 100 05/30/19 16:08 92 H 100 05/30/19 16:05 100 H 120/68 05/30/19 16:03 105 H 100 05/30/19 15:58 102 H 99 05/30/19 15:53 101 H 100 05/30/19 15:48 97 H 100 05/30/19 15:43 87 99 05/30/19 15:38 95 H 99 05/30/19 15:33 97 H 100 05/30/19 15:28 113 H 99 05/30/19 15:23 111 H 100 05/30/19 15:18 99 H 100 05/30/19 15:13 96 H 100 05/30/19 15:10 105 H 0 L 05/30/19 15:08 107 H 100 05/30/19 15:03 110 H 131/68 100 05/30/19 14:58 99 H 100 05/30/19 14:53 110 H 100 05/30/19 14:48 103 H 100 05/30/19 14:47 88 112/68 05/30/19 14:43 85 100 05/30/19 14:38 88 100 05/30/19 14:33 92 H 98 05/30/19 14:32 86 107/61 05/30/19 14:28 89 99 05/30/19 14:23 86 98 05/30/19 14:18 88 98 05/30/19 14:17 83 102/58 05/30/19 14:13 84 99 05/30/19 14:08 84 97 05/30/19 14:03 86 97 05/30/19 14:01 86 103/59 05/30/19 13:58 88 97 05/30/19 13:53 87 96 05/30/19 13:48 88 98 05/30/19 13:46 90 108/63 05/30/19 13:43 96 H 95 05/30/19 13:38 88 97 05/30/19 13:33 90 98 05/30/19 13:31 96 H 106/64 05/30/19 13:28 94 H 99 05/30/19 13:18 94 H 115/71 05/30/19 13:01 96 H 111/64 05/30/19 12:47 96 H 113/67 05/30/19 12:30 105 H 121/79 05/30/19 12:13 104 H 100 05/30/19 12:08 97 H 99 05/30/19 12:03 98 H 98 05/30/19 11:58 107 H 99 05/30/19 11:53 99 H 100 05/30/19 11:48 114 H 100 05/30/19 11:43 89 100 05/30/19 11:38 102 H 99 05/30/19 11:33 99 H 99 05/30/19 11:30 90 95/51 05/30/19 11:28 101 H 96 05/30/19 11:23 86 97 05/30/19 11:18 88 98 05/30/19 11:13 83 97 05/30/19 11:08 84 98 05/30/19 11:03 83 99 05/30/19 10:58 86 98 05/30/19 10:53 84 97 05/30/19 10:49 100 H 99 05/30/19 10:44 83 99 05/30/19 10:39 85 97 05/30/19 10:33 82 99 05/30/19 10:29 82 103/60 98 05/30/19 10:24 79 98 05/30/19 10:19 83 99 05/30/19 10:14 98 H 100 05/30/19 10:09 91 H 100 05/30/19 10:06 95 H 93 05/30/19 10:03 90 100 05/30/19 09:58 81 99 05/30/19 09:53 80 99 05/30/19 09:49 89 98 05/30/19 09:44 87 97 05/30/19 09:39 82 99 05/30/19 09:33 85 98 05/30/19 09:32 97.4 F L 05/30/19 09:29 81 99/59 98 05/30/19 09:24 87 99 05/30/19 09:19 82 97 05/30/19 09:14 85 97 05/30/19 09:09 84 97 05/30/19 09:04 86 98 Intake and Output 05/30/19 05/31/19 05/31/19 22:59 06:59 14:59 Intake Total 1700 480 Output Total 1400 1650 Balance 300 -1170 Intake: IV 1700 Oral 480 Output: Urine 1400 800 Indwelling Catheter 700 800 Uretheral (Bradley) 50 Void 300 Other 850 Other: Total, Intake Amount 240 Total, Output Amount 300 50 - Exam Breasts: Present: normal Cardiovascular: Present: Regular rate Lungs: Present: Clear to auscultation, Normal air movement Abdomen: Present: normal appearance, soft, normal bowel sounds Uterus: Present: normal, firm, fundal height at umbilicus Extremities: Present: normal Incision: Present: normal, dry, intact, dressed - Labs Labs: Abnormal lab results 05/30/19 05/30/19 05/31/19 Range/Units 10:00 16:11 08:10 Hgb 8.6 L D (10.1-14.3) gm/dl Hct 25.4 L D (30.3-42.9) % Magnesium 6.70 H 6.50 H (1.7-2.3) mg/dL
[2019-05-31] MEDS: FEOSOL PO SCH ×2 (09:53→21:46)
[2019-05-31] MEDS: PRENATAL VITAMIN PO SCH (09:53)
[2019-05-31] MEDS: NORCO 5/325 PO PRN ×3 (09:53→20:03)
[2019-05-31] MEDS ORDERED: FEOSOL PO SCH (10:00)
[2019-05-31] MEDS ORDERED: BENADRYL PO PRN (10:54)
[2019-05-31] MEDS: IBUPROFEN PO SCH (21:46)
[2019-06-01] MEDS: IBUPROFEN PO SCH ×3 (03:30→18:27)
[2019-06-01] MEDS: NORCO 5/325 PO PRN ×2 (05:12→18:26)
[2019-06-01] MEDS ORDERED: BOOSTRIX IM ONE (06:00)
--- NOTE | 2019-06-01 08:08 | Progress Note ---
Assessment and Plan - Patient Problems (1) delivery delivered Onset Date: ~05/30/19 Current Visit: Yes Status: Acute Plan to address problem: Pt in good spirits No c/o voiced VSS FF below umb Lochia small H&H 06/05 no s/sx of anemia Doing well s/p c/s P: continue pathway Advance as tolerated Plan d/c for tomorrow Subjective - Subjective Date of service: 06/01/19 (no c/o voiced) Principal diagnosis: Day #2 s/p repeat c/s with tubal @ 32 weeks Patient reports: appetite normal, voiding normally, pain well controlled, ambulating normally : in NICU ( 32 weeks) Objective - Vital Signs Latest vital signs: Vital Signs Temp Pulse Resp BP BP Pulse Ox 06/01/19 00:00 97.9 F 88 20 103/56 97 05/31/19 15:15 98 F 88 20 98/40 05/31/19 12:15 98.1 F 76 20 98/67 Intake and Output 05/31/19 06/01/19 06/01/19 22:59 06:59 14:59 Intake Total 680 120 Output Total 1450 Balance -770 120 Intake: Oral 680 120 Output: Urine 1450 Void 1450 Other: Total, Intake Amount 360 120 Total, Output Amount 400 # Voids Void 1 1 - Exam Breasts: Present: normal Cardiovascular: Present: Regular rate Lungs: Present: Normal air movement Abdomen: Present: normal appearance, soft, normal bowel sounds Vulva: both: normal Uterus: Present: normal, fundal height below umbilicus Extremities: Present: normal Deep Tendon Reflex Grade: Normal +2 Incision: Present: normal, dry, intact - Labs Labs: Abnormal lab results 05/31/19 Range/Units 08:10 Hgb 8.6 L D (10.1-14.3) gm/dl Hct 25.4 L D (30.3-42.9) %
[2019-06-01] MEDS: FEOSOL PO SCH ×2 (12:45→21:33)
[2019-06-01] MEDS: PRENATAL VITAMIN PO SCH (12:45)
[2019-06-02] MEDS: IBUPROFEN PO SCH ×2 (00:17→10:24)
[2019-06-02 04:30] VITALS: BP 107/68
--- NOTE | 2019-06-02 09:22 | Discharge Summary ---
Providers - Providers Date of Admission: 05/29/19 16:48 Date of discharge: 06/02/19 Attending physician: JENNIFER MAGAÑA 05/30/19 22:17 Consult to Forest Pathologist [CONS] Routine Reason For Exam: Primary care physician: JENNIFER MAGAÑA Hospitalization Reason for admission: contractions, r/o PTL Condition: Good Pertinent studies: post delivery H&H 8.6/25.4, acute anemia d/t blood loss at delivery, patient is asymptomatic, Fe ordered Procedures: repeat c/s with BTL Hospital course: uncomplicated rpt c/s and course Disposition: DC-01 TO HOME OR SELFCARE Core Measure Documentation - Palliative Care Palliative Care/ Comfort Measures: Not Applicable - Core Measures Any of the following diagnoses?: none Exam - Constitutional Vitals: Temp Pulse Resp BP Pulse Ox 98.4 F 104 H 20 107/68 99 06/02/19 04:29 06/02/19 04:29 06/02/19 04:29 06/02/19 04:29 06/02/19 04:29 General appearance: Present: no acute distress, well-nourished - EENT Eyes: Present: PERRL ENT: hearing intact, clear oral mucosa - Neck Neck: Present: supple, normal ROM - Respiratory Respiratory effort: normal Respiratory: bilateral: CTA - Cardiovascular Rhythm: regular Heart Sounds: Present: S1 & S2. Absent: rub, click - Extremities Extremities: pulses symmetrical, No edema Peripheral Pulses: within normal limits - Abdominal General gastrointestinal: Present: soft, non-tender, non-distended, normal bowel sounds Female genitourinary: Present: normal - Integumentary Integumentary: Present: clear, warm, dry - Musculoskeletal Musculoskeletal: gait normal, strength equal bilaterally - Psychiatric Psychiatric: appropriate mood/affect, intact judgment & insight - Neurologic Neurologic: CNII-XII intact, moves all extremities - Additional findings Additional findings: Patient in bed, pumping breast milk for infant in NICU. She reports feeling well, denies any complaints or concerns. Fundus is firm, ML, U/2. Vaginal bleeding is scant, patient denies any heavy bleeding or large clots. She reports pain is well controlled with medications given. Abdominal incision is well- approximated, healing well, no bleeding or drainage noted, no s/s infection. Steri strips in place. DWP appropriate hygiene/care for incision. Encouraged pt to continue IS and ambulation frequently. DWP post delivery H&H, she denies any dizziness or feeling faint with ambulation or position changes. Rx for Fe on chart for discharge. VSSAF. Pt reports she has f/u incision check appointment scheduled for Thursday. Plan Activity: advance as tolerated Diet: regular Wound: open to air, keep clean and dry Special Instructions: no heavy lifting Follow up with: JENNIFER MAGAÑA MD [Primary Care Provider] - 7 Days (Congratulations! Pleas keep scheduled appointment for incision check in 1 week. Please call [phone] with any questions or concerns. ) Prescriptions: Docusate Sodium [Colace] 100 mg PO BID PRN #60 capsule PRN Reason: Constipation Ferrous Sulfate [Feosol 325 MG tab] 325 mg PO BID #60 tablet Ibuprofen [Motrin 800 MG tab] 800 mg PO Q6H PRN #30 tablet PRN Reason: Pain oxyCODONE /ACETAMINOPHEN [Percocet 5/325 mg] 1 - 2 tab PO Q4H PRN #20 tablet PRN Reason: Pain, Moderate
[2019-06-02] MEDS ORDERED: COLACE PO SCH (10:00)
[2019-06-02] MEDS: PRENATAL VITAMIN PO SCH (10:24)
[2019-06-02] MEDS: FEOSOL PO SCH (10:25)
== END 2019-06-02 18:00 | disposition home or self-care (01) | DRG 765 ==
LOC: TRG 14:10 → UNDOADMIN 16:48 → LD 16:48 → OB 05-30 22:20
PROVIDERS: ADMIT Obstetrics & Gynecology; ATTEND Obstetrics & Gynecology
PROC: 10D00Z1 Extraction of Products of Conception, Low, Open Approach (ICD-10-PCS; principal; 2019-05-30)
PROC: 0UB70ZZ Excision of Bilateral Fallopian Tubes, Open Approach (ICD-10-PCS; 2019-05-30)
PROC: 0DNW0ZZ Release Peritoneum, Open Approach (ICD-10-PCS; 2019-05-30)
PROC: 3E0234Z Introduction of Serum, Toxoid and Vaccine into Muscle, Percutaneous Approach (ICD-10-PCS; 2019-06-01)
DX: O34.211 Maternal care for low transverse scar from previous cesarean delivery (principal); O60.14X0 Preterm labor third trimester with preterm delivery third trimester, not applicable or unspecified; D62 Acute posthemorrhagic anemia; Z37.0 Single live birth; Z3A.32 32 weeks gestation of pregnancy; O99.02 Anemia complicating childbirth; K21.9 Gastro-esophageal reflux disease without esophagitis; K66.0 Peritoneal adhesions (postprocedural) (postinfection); O99.62 Diseases of the digestive system complicating childbirth; Z79.899 Other long term (current) drug therapy; Z23 Encounter for immunization
CPT/HCPCS: 36415; 76816; 76820; 80307; 81001; 83735; 85014; 85018; 85027; 86850; 86900; 86901; 87116; 88302; 88307; 90471; 90715; G0378; J0595; J0690; J0702; J1170; J1885; J2405; J2590; J2765; J3010; J3105; J3475; J3490; J7120; J7121